=== PATIENT | male | born 1985 | race African-American/Black ===

== ENCOUNTER 2024-11-12 11:56 | Emergency (ER) | payer MEDICAID, OTHER ==
[~2024-11-12] VITALS: Ht 190.5 cm; Wt 156.0 kg
[2024-11-12 12:07] VITALS: O2SAT 100
[2024-11-12 12:46] LABS: BASOPHILS % 0.7 % (0.0-2.0); EOSINOPHILS % 1.4 % (0.0-5.0); HEMATOCRIT. 46.7 % (42.0-52.0); HEMOGLOBIN. 14.8 g/dL (14.0-18.0); LYMPHOCYTES % 27.5 % (20.0-50.0); MEAN CORPUSCULAR HEMOGLOBIN 25.3 pg (28.0-32.0); MEAN CORPUSCULAR HGB CONC 31.6 g/dL (31.0-37.0); MONOCYTES % 8.1 % (2.0-8.0); NEUTROPHILS % 62.3 % (40.0-76.0); PLATELET 181 x1000/uL (130-400); RED BLOOD CELL COUNT 5.84 mill/uL (4.7-6.1); RED CELL DISTRIBUTION WIDTH 16.1 % (11.6-14.6)
[2024-11-12 12:58] LABS: CHLORIDE 101 mEq/L (98-107); POTASSIUM 3.5 mEq/L (3.5-5.1); SODIUM 139 mEq/L (136-145)
[2024-11-12 12:59] LABS: CALCIUM 9.5 mg/dL (8.7-10.4); CARBON DIOXIDE 30 mEq/L (21-32)
[2024-11-12 13:04] LABS: GLUCOSE 110 mg/dL (70-105); UREA NITROGEN BLOOD 11 mg/dL (9-23)
[2024-11-12 13:06] LABS: ALANINE AMINOTRANSFERASE 32 IU/L (10-49); ALBUMIN 4.5 g/dL (3.2-4.8); ASPARTATE AMINOTRANSFERASE 23 IU/L (<34); BILIRUBIN DIRECT 0.2 mg/dL (<=3.0); BILIRUBIN TOTAL 0.7 mg/dL (0.1-1.0); PROTEIN TOTAL 8.1 g/dL (6.0-8.3)
[2024-11-12 13:07] LABS: PROTHROMBIN TIME 10.9 sec (9.6-11.0)
[2024-11-12] MEDS: ONDANSETRON HCL 4MG/2ML INJ IV STA (13:10)
[2024-11-12] MEDS: KETOROLAC 30MG/ML VIAL IV STA (13:11)
[2024-11-12] MEDS: HYDRALAZINE 20MG/ML VIAL IV NR (14:00)
[2024-11-12 14:06] LABS: CLARITY URINE CLEAR (CLEAR); COLOR URINE YELLOW (YELLOW); GLUCOSE URINE NEGATIVE (NEGATIVE); KETONES URINE NEGATIVE (NEGATIVE); LEUKOCYTE ESTERASE URINE NEGATIVE (NEGATIVE); NITRITE URINE NEGATIVE (NEGATIVE); OCCULT BLOOD URINE NEGATIVE (NEGATIVE); PROTEIN URINE 2+ (NEGATIVE); SPECIFIC GRAVITY URINE 1.017 (1.005-1.030); UROBILINOGEN URINE 0.2 E.U./dL (0.2-1.0)
[2024-11-12 14:15] LABS: BACTERIA URINE FEW; RBC URINE 0-2 /hpf (0-2); SQUAMOUS EPITHELIAL CELL URINE NONE SEEN /lpf (RARE/1+); WBC URINE 0-2 /hpf (0-2); YEAST URINE NONE SEEN
[2024-11-12] MEDS ORDERED: ONDANSETRON HCL 4MG/2ML INJ ONE (16:59)
[2024-11-12] MEDS: SODIUM CHLORIDE 0.9% 1,000 ML IV ONE (17:06)
[2024-11-12] MEDS: ONDANSETRON HCL 4MG/2ML INJ IV NR (17:07)
[2024-11-12] MEDS ORDERED: POLYETHYLENE GLYCOL 3350 (17GM) 1 DOSE PACK PO ONE (17:45)
[2024-11-12 17:51] LABS: TROPONIN I HIGH SENSITIVITY 61 ng/L (3.0-53)
[2024-11-12] MEDS: DOCUSATE SODIUM 100MG CAPSULE PO ONE (18:53)
[2024-11-12 21:03] VITALS: BP 177/99; PULSE 87; RESP 16; O2SAT 100
== END 2024-11-12 21:08 | disposition left against medical advice (07) ==
LOC: ER 11:56 → CANBEDREQ 21:03 → ER 21:08
DX: I16.1 Hypertensive emergency (principal); I21.A1 Myocardial infarction type 2; I10 Essential (primary) hypertension
CPT/HCPCS: 80076; 80048; 81003; 83690; 85025; 85610; 84484; 36415; 74176; 76705; 93005; 96374; 96375; 96376; 99285; Z7610 ×2; J0360; J1885; J2405